=== PATIENT | female | born 1965 | race Caucasian/White ===

== ENCOUNTER 2024-10-05 21:45 | Inpatient (IN) | payer OTHER, SELFPAY ==
[2024-10-05 16:15] VITALS: BP 162/97
--- NOTE | 2024-10-05 18:44 | ED.GENMED ---
History of Present Illness
General
Chief Complaint: Abdominal Pain
Time Seen by Provider: 10/05/24 18:06
History of Present Illness
History of Present Illness:
59-year-old female presents the emergency department for evaluation of excruciating right upper quadrant abdominal pain that began 3 to 4 days ago, she was diagnosed with pneumonia by her primary care physician via telehealth appointment earlier in
the week, states that while coughing forcefully last night she developed acute onset of right upper quadrant pain. Despite her respiratory symptoms improving on antibiotics she feels as though the pain has been worsening throughout the day. She
concerned there is a palpable lump to the area. Worse with any movement or twisting. She also notes that she feels gas buildup causing increasing pain as well as difficulty having a formed bowel movement. No fevers or chills
Review of Systems
Review of Systems
Allergies reviewed?: Yes
All Other Systems: ROS reviewed and negative except as documented in HPI and ROS
Phy Exam
Physical Exam
Physical Exam:
GEN: Well appearing, NAD, WDWN
HEENT: Oral mucosa moist, no scleral icterus
Cardiac: Regular rate
Lung: No respiratory distress, no tachypnea
Abdomen: Moderate firmness to the right upper quadrant, no discrete mass, no pulsations, remainder of abdomen is soft and nontender
MSK: No gross deformity or injuries
Skin: Good color, no pallor or jaundice, no rashes
Neuro: AO x3, moves all extremities freely
Psych: Calm, cooperative
Course
Orders/Labs/Results
Orders:
Orders
10/05/24 18:41
CT Abd/Pel (IV only)-DH only Urgent
Comment: hernia vs hematoma
Reason For Exam: RUQ pain after coughing
0.9% Sodium Chloride 1000 ml [Nss] 1,000 ml IV BOLUS
Ketorolac [Toradol] 15 mg IV NOW STA
10/05/24 18:54
Complete Blood Count/With Diff Urgent
Comprehensive Metabolic Panel Urgent
10/05/24 19:45
Albuterol [ProAIR HFA INHALER] 2 puff INH R NOW STA
10/05/24 20:56
HYDROmorphone [Dilaudid] 0.5 mg IV NOW STA
10/05/24 21:11
PT/INR [Prothrombin Time] Urgent
PTT Urgent
10/05/24 21:13
Admit/Transfer Patient As Directed
Co-Sign Provider:
Level of Care: Inpatient admission
Assign to:: Medical/Surgical
Physician / Group: anaya
Diagnosis: rectus sheath hematoma
Reason for Hospitalization: rectus sheath hematoma
Expected length of stay greater than two midnights?: Yes
ELOS- Estimated Length of Stay in days: 3
I certify the patient meets the requirements for IP care: Yes
PRN Pain Medication Management As Directed
May give lesser potent ordered pain med per pt: Yes
preference::
Protocol:: Medication orders for pain may be administered in a
manner that supports deferring to patient preference
when the pt is:
- Requesting an ordered lesser potent pain medication.
Least to most potent pain medications are defined
as: acetaminophen < NSAID < tramadol < opioids
(morphine, oxycodone, hydromorphone).
- Requesting a lesser dose of the same medication IF
ORDERED.
- Requesting a less intrusive route of administration
if both routes are prescribed by the provider (PO <
IV).
10/05/24 21:14
Code Status As Directed
Resuscitation Status: Full Code
10/05/24 21:42
IRAD CONSULT Routine
Consulting Provider: Panda Ye
Was physician already notified: Yes
Reason for Consult/Procedure: rectal sheath hematoma
Acknowledgement that appropriate orders are entered: Yes
10/05/24 22:48
0.9% Sodium Chloride 1000 ml [Nss] 1,000 ml IV 80 mls/hr
Albuterol [ProAIR HFA INHALER] 2 puff INH R Q6HPRN PRN
Tramadol HCl [Ultram] 100 mg PO [id number] PRN
10/05/24 22:48
Abdominal Binder As Directed
Activity As Directed
Activity Level: As Tolerated
Venous Foot Pumps As Directed
Location: Bilateral feet
Vital Signs As Directed
Frequency: Per unit guidelines
DX Deep Vein Thrombosis Video Routine
10/05/24 22:52
HYDROmorphone [Dilaudid] 1 mg IV Q4HPRN PRN
10/05/24 23:33
Lactate Level [Lactic Acid] Stat
10/06/24 Breakfast
NPO
Allow oral meds: Yes
Allow clear liquids: No
Complete Blood Count/No Diff IN AM
10/06/24 08:00
Cefuroxime Axetil [Ceftin] 500 mg PO BID
MethylPREDNISolone [Medrol] 16 mg PO ONCE ONE
10/07/24 06:00
Complete Blood Count/No Diff IN AM
10/07/24 08:00
MethylPREDNISolone [Medrol] 12 mg PO ONCE ONE
10/08/24 06:00
Complete Blood Count/No Diff IN AM
10/08/24 08:00
MethylPREDNISolone [Medrol] 8 mg PO ONCE ONE
10/09/24 06:00
Complete Blood Count/No Diff IN AM
10/09/24 08:00
MethylPREDNISolone [Medrol] 4 mg PO ONCE ONE
Abnormal Lab Results
10/05/24
18:54
WBC 15.6 H 10^3/uL
(4.8-10.8)
Abs Immat Gran (auto) 0.2 H 10^3/uL
(0-0.05)
Absolute Neuts (auto) 9.5 H 10^3/uL
(1.4-6.5)
Absolute Lymphs (auto) 4.7 H 10^3/uL
(1.2-3.4)
Absolute Monos (auto) 0.9 H 10^3/uL
(0.1-0.6)
Immature Gran % 1.0 H %
(0-0.5)
Glucose 125 H mg/dl
(70-99)
AST 46 H U/L
(14-36)
ALT 41 H U/L
(0-35)
10/05/24 18:54
10/05/24 18:54
Vital Signs
Initial and Last Documented VS:
Initial Vital Signs
Temp Pulse Resp BP Pulse Ox
97.8 F 60 16 162/97 99
10/05/24 16:15 10/05/24 16:15 10/05/24 16:15 10/05/24 16:15 10/05/24 16:15
Last Documented Vital Signs
Temp Pulse Resp BP Pulse Ox
97.5 F 73 18 157/78 97
10/05/24 23:30 10/05/24 23:30 10/05/24 23:30 10/05/24 23:30 10/05/24 23:30
MDM/Problems Addressed
MDM/Problems Addressed:
CT findings reviewed with interventional radiology on-call. Recommends abdominal binder and overnight monitoring for serial H&H, consider angio study if patient becomes unstable. Will admit to the hospitalist service
*Critical Care Note
Total Time (30-74mins, 75-104mins- exclusive of procedures): Not Applicable
ED Attending Note
-
Portions of this chart may have been created with voice recognition software.� Occasional wrong word or��sound alike� substitutions may have occurred due to the inherent limitations of voice recognition software.
Discharge Plan
Departure
Patient Disposition: Admit
Date of Disposition: 10/05/24
Time of Disposition: 20:43
Admit to: Med/Surg
Presentation/result/management discussed w/ accepting MD/DO: Hospitalist
Discharge Problem:
Hematoma of rectus sheath
Interventions
Interventions:
*Risk Screen - Suicide Last Done: 10/05/24 23:03
*General Assessment Last Done: 10/05/24 19:04
*Neglect/Abuse Screening Last Done: 10/05/24 16:18
ED- Fall Risk Assessment Last Done: 10/05/24 22:40
*ED COVID-19 Vaccine History Last Done: 10/05/24 23:03
*Nursing Disposition Last Done: 10/05/24 22:40
ZG-Yzqgnf-Rfywlpdfey Assessment Last Done: 10/05/24 18:54
Discharge Date and Time
Discharge Date/Time: 10/05/24 22:47
[2024-10-05] MEDS: NSS 1000 IV ×2 (18:55→23:19)
[2024-10-05] MEDS: TORADOL 15 MG IV (18:55)
[2024-10-05 19:22] LABS: Hematocrit 40.5 % (37.0-47.0); Hemoglobin 13.6 g/dL (12.0-16.0); Mean Corp Hgb Conc. 33.6 g/dL (33.0-37.0); Mean Corpuscular Hgb 30.6 pg (27.0-31.0); Mean Platelet Volume 9.5 fL (7.4-10.4); Platelet Count 272 10^3/uL (130-400); Red Blood Cell Count 4.45 10^6/uL (4.20-5.40); Red Cell Dist. Width 14.1 % (11.5-14.5); White Blood Cell Count 15.6 10^3/uL (4.8-10.8)
[2024-10-05 19:32] LABS: ALT (SGPT) 41 U/L (0-35); AST (SGOT) 46 U/L (14-36); Albumin 4.9 g/dl (3.5-5.0); Alkaline Phosphatase 60 U/L (38-126); Blood Urea Nitrogen 16 mg/dl (7-17); Calcium 9.3 mg/dl (8.4-10.2); Carbon Dioxide 26 mmol/L (22-30); Chloride 101 mmol/L (98-107); Glucose 125 mg/dl (70-99); Potassium 4.3 mmol/L (3.5-5.1); Sodium 137 mmol/L (135-145); Total Bilirubin 0.9 mg/dl (0.2-1.3); Total Protein 7.4 g/dl (6.3-8.2); eGFR > 60.00
[2024-10-05 20:07] LABS: % Basophils 0.5 % (0-2); % Eosinophils 1.2 % (0-6); % Neutrophils 61.3 % (42.2-75.2); Absolute Basophils 0.1 10^3/uL (0-0.2); Absolute Eosinophils 0.2 10^3/uL (0-0.7); Absolute Immature Granulocytes 0.2 10^3/uL (0-0.05); Absolute Lymphocytes 4.7 10^3/uL (1.2-3.4); Absolute Monocytes 0.9 10^3/uL (0.1-0.6); Absolute Neutrophils 9.5 10^3/uL (1.4-6.5); Nucleated Red Blood Cells % 0 %
[2024-10-05] MEDS: ProAIR HFA INHALER 2 PUFF INH (20:24)
--- NOTE | 2024-10-05 20:49 | HPS.HSE ---
Addendum entered and electronically signed by Eric Sheets DO 10/05/24 22:47:
Patient seen and examined independently. Agree with findings and plan as set forth by ZEUS Buckner.
Patient is a 59y F with PMH significant for hypothyroidism who presents to ED complaining of severe abdominal pain. Patient states that she started with cough / cold symptoms about 8 days ago. She shortly thereafter developed pain in the R
abdomen that would occur with coughing. She spoke with her PCP several days ago and was prescribed Ceftin and Medrol dose pack for her ongoing cough / respiratory complaints. She was using inhaler at bedtime to decrease cough and help with sleep.
She states that her cough and dyspnea have significantly improved over the past 2 days since beginning these medications. However, she woke around 2 AM this morning with severe pain in the R abdomen. This was much worse than her prior discomfort
and was not clearly triggered by any coughing paroxysm, etc. Her pain worsened / persisted throughout the day - ultimately prompting her to present to the ED for further evaluation and treatment.
Ass:
Right Rectus Sheath Hematoma
Bronchitis / URI
Leukocytosis
Hypothyroidism
Plan:
Admit for further evaluation and treatment.
CT scan shows large R rectus sheath hematoma with enhancement concerning for active bleeding / extravasation.
Results reviewed with IR who recommend monitoring clinical status, Hgb and hemodynamics.
Will see in AM. Will see urgently if patient decompensates.
Not on any blood thinners, antiplatelets, etc.
Pain control / supportive care for now.
Monitor BP, H&H, etc.
Follow for any new / worsening symptoms.
Continue abx / PO steroid regimen for respiratory illness.
Cough suppressants to minimize cough / prevent further exacerbation of abdominal injury.
Original Note:
Family Physician
-
Family Physician: John Conklin
Chief Complaint
-
abdominal pain
History of Present Illness
59-year-old female with PMH for hypothyroidism presents the emergency department for evaluation of excruciating right upper quadrant abdominal pain since last night. patient was coughing for past 10-12 days. she was initiated on Ceftin 3 days ago
for possible pneumonia.last night she woke up with excruciating right sided upper quadrant pain. she was up all night with pain. took gas x with no relief in her symptoms. she was nauseous. denied vomit. she was evaluated by PCP, who gave her muscle
relaxant. she took half of one pill, which knocked her out for 40 minutes. she woke up with worsening excruciating pain. her normal regular BM was two days ago. denied fever chills, chest pain, sob. denied dysuria or hematuria.
she was doing fine with Toradol, then she noted to have worsening pain after neb treatment. CT with Large right rectus sheath hematoma measuring at least 12 x 10 x 5.5 cm. Small focus of high attenuation density within centrally without significant
change on immediate postcontrast and delayed postcontrast imaging, cannot exclude active bleeding within.
admitting for further management.
Medical History
Past Medical History
Past Medical History: Reports Other
Additional Past Medical History:
hypothyroidism
Past Surgical History: Reports Appendectomy
Social History
Tobacco: Smoker (occasional )
Alcohol: None
Drug: None
Personal:
Living: With Family
Family History
Family History: Not pertinent
Allergies / Home Medications
Allergies reflects when Allergies were last updated in [facility].
Home Medications with original date entered in [facility]
Allergy/Medication List:
Allergies
Allergy/AdvReac Type Severity Reaction Status Date / Time
Quinolones Allergy Hives Verified 03/13/23 19:54
Home Medications
albuterol sulfate 90 mcg/actuation aerosol inhaler 2 puff inhalation R Q6HPRN PRN sob 10/05/24
cefuroxime axetil 500 mg tablet 500 mg PO BID 10/05/24
methylprednisolone 4 mg tablets in a dose pack 0 mg PO PER PKG DIR 10/05/24
simethicone 80 mg chewable tablet 160 mg PO BIDPRN PRN gas 10/05/24
Review of Systems
-
Constitutional: Reports No Symptoms
EENT: Reports No Symptoms
Respiratory: Reports No Symptoms
Cardiac: Reports No Symptoms
Abdomen/GI: Reports Abdominal Pain and Nausea
: Reports No Symptoms
Musculoskeletal: Reports No Symptoms
Skin: Reports No Symptoms
Neurological: Reports No Symptoms
Endocrine: Reports No Symptoms
Hematologic/Lymphatic: Reports No Symptoms
Psych: Reports No Symptoms
Physical Exam
Vital Signs
Vital Signs
Temp Pulse Resp BP Pulse Ox
97.8 F 60 20 162/97 99
10/05/24 16:15 10/05/24 16:15 10/05/24 18:00 10/05/24 16:15 10/05/24 16:15
Physical Exam
General: Well Developed, Well Nourished and No Apparent Distress
HEENT: NormoCephalic, Moist mucous membranes and Atraumatic
Respiratory: Clear
Cardiac: S1/S2 and Regular Rhythm; No Murmur or Rub
GI: Soft, Non Distended, Normal Bowel Sounds and Tender; No Organomegaly
Rectal: Deferred by Provider
Musculoskeletal: No Clubbing, No Cyanosis and No Edema
Skin: No Rash
Neuro: AO x 3 and Nonfocal/grossly intact
Psych: Calm
Laboratory Results
-
10/05/24 18:54
10/05/24 18:54
Laboratory Results
Total Bilirubin 0.9 mg/dl (0.2-1.3) 10/05/24 18:54
AST 46 U/L (14-36) H 10/05/24 18:54
ALT 41 U/L (0-35) H 10/05/24 18:54
Alkaline Phosphatase 60 U/L (38-126) 10/05/24 18:54
Data Reviewed
-
CT Scan: Report Reviewed by me
Lab Data: Labs Reviewed by me
Impression/Plan
-
#rectus sheath hematoma
-IR consulted
-IR recommended angio study if patient becomes unstable.
-abdominal binder
-keep NPO
-fluids continued for hydration
-Tramadol and Dilaudid prn for pain
-CT abdomen pelvis with Large right rectus sheath hematoma measuring at least 12 x 10 x 5.5 cm. Small focus of high attenuation density within centrally without significant change on immediate postcontrast and delayed postcontrast imaging, cannot
exclude active bleeding within.Mild partial likely remote L2 superior endplate compression fracture.
#leukocytosis likely from steroids
-patient is afebrile
-ctm
#LFT elevation
-ctm
#cough likely pneumonia
-Ceftin continued
-steroid continued
#hypothyroidism
-not taking levothyroxine for past few days.
#DVT prophylaxis
-scd
#CODE status
-full code
[2024-10-05] MEDS: DILAUDID 0.5 MG IV (21:12)
[2024-10-05 21:16] VITALS: BP 132/73
[2024-10-05 21:33] LABS: PT 14.5 Sec (11.4-14.6)
[2024-10-05 21:34] LABS: APTT 28.1 Sec (23.4-35.0)
[2024-10-05 23:30] VITALS: BP 157/78; BMI 41.8
[2024-10-05 23:52] LABS: Lactic Acid 1.3 mmol/L (0.7-2.0)
[2024-10-06 01:20] LABS: Hematocrit 36.8 % (37.0-47.0); Hemoglobin 12.1 g/dL (12.0-16.0)
[2024-10-06] MEDS: ULTRAM 100 MG PO (03:20)
[2024-10-06] MEDS: PHENERGAN WITH CODEINE SYRUP 5 ML PO (03:20)
[2024-10-06] MEDS: SYNTHROID PO (05:19)
[2024-10-06 06:45] LABS: Hematocrit 35.6 % (37.0-47.0); Mean Corp Hgb Conc. 33.7 g/dL (33.0-37.0); Mean Corpuscular Hgb 32.3 pg (27.0-31.0); Mean Corpuscular Volume 95.7 fL (81.0-99.0); Mean Platelet Volume 9.7 fL (7.4-10.4); Platelet Count 231 10^3/uL (130-400); Red Blood Cell Count 3.72 10^6/uL (4.20-5.40); Red Cell Dist. Width 14.4 % (11.5-14.5); White Blood Cell Count 12.3 10^3/uL (4.8-10.8)
[2024-10-06 07:11] VITALS: BP 127/64
[2024-10-06] MEDS: MEDROL 16 MG PO (08:08)
[2024-10-06] MEDS: CEFTIN 500 MG PO ×2 (08:08→19:36)
[2024-10-06] MEDS: TYLENOL 650 MG PO ×2 (08:57→16:49)
[2024-10-06] MEDS: TESSALON PERLES 200 MG PO ×2 (08:57→17:15)
[2024-10-06] MEDS: MUCINEX 1200 MG PO ×2 (08:57→19:36)
--- NOTE | 2024-10-06 09:03 | W.PN.HOSP.TC ---
Today's Communication/Plan
-
resume regular diet, IVF completed
observe, if remains stable/continues to improve, likely discharge tomorrow.
Assessment / Plan
Assessment / Plan
Physical Exam
General: Well Developed, Well Nourished and No Apparent Distress
HEENT: NormoCephalic, Moist mucous membranes and Atraumatic
Respiratory: Clear
Cardiac: S1/S2 and Regular Rhythm; No Murmur or Rub
GI: Soft, Non Distended, Normal Bowel Sounds and Tender; Abd binder in placed
Musculoskeletal: No Clubbing, No Cyanosis and No Edema
Skin: No Rash
Neuro: AO x 3 and Nonfocal/grossly intact
Psych: Calm
HPI:59F with PMH significant for hypothyroidism who presents to ED complaining of severe abdominal pain. Patient states that she started with cough / cold symptoms about 8 days ago. She shortly thereafter developed pain in the R abdomen that
would occur with coughing. She spoke with her PCP several days ago and was prescribed Ceftin and Medrol dose pack for her ongoing cough / respiratory complaints. She was using inhaler at bedtime to decrease cough and help with sleep. She states
that her cough and dyspnea have significantly improved over the past 2 days since beginning these medications. However, she woke around 2 AM morning with severe pain in the R abdomen. This was much worse than her prior discomfort and was not
clearly triggered by any coughing paroxysm, etc. Her pain worsened / persisted throughout the day - ultimately prompting her to present to the ED for further evaluation and treatment.
#rectus sheath hematoma
-CT abdomen pelvis with Large right rectus sheath hematoma measuring at least 12 x 10 x 5.5 cm. Small focus of high attenuation density within centrally without significant change on immediate postcontrast and delayed postcontrast imaging, cannot
exclude active bleeding within.Mild partial likely remote L2 superior endplate compression fracture.
-IR consult appreciated conservative mgmt recommended angio study if patient becomes unstable.
-abdominal binder
-Symptomatically improved, IVF completed, diet resumed
-Tramadol and Dilaudid prn for pain
#leukocytosis likely from steroids
-patient is afebrile
-ctm
#mild LFT elevation
-ctm
#cough likely pneumonia
-Ceftin continued
-steroid continued
#hypothyroidism
-not taking levothyroxine for past few days.
#DVT prophylaxis
-scd
#CODE status
-full code
I spent a total of 45 minutes with the patient or on the floor. More than 50% of this time involved counseling and coordination of care.
Anticipated Discharge: Within 24 hours
Subjective/Interval History
-
Date of Service: October 06, 2024
Overall reports improvement in symptoms. Denies new acute issues.
Objective Data
-
Labs:
Laboratory Results
10/05/24 10/06/24 10/06/24
21:11 01:13 06:27
WBC 12.3 H
Hgb 12.1 12.0
Hct 36.8 L 35.6 L
Plt Count 231
PT 14.5
INR 1.10
APTT 28.1
Vital Signs:
Vital Signs
Temp Pulse Resp BP Pulse Ox
97.4 F 70 18 127/64 93
10/06/24 07:11 10/06/24 07:11 10/06/24 07:11 10/06/24 07:11 10/06/24 07:11
I&O
10/05/24 10/06/24 10/07/24
06:59 06:59 06:59
Intake Total 0 / 0
Balance 0 / 0
[2024-10-06] MEDS: NSS IV (13:09)
--- NOTE | 2024-10-06 14:05 | W.PN.UPDATE ---
Update Note
Progress Note Update
Discussed potential transcatheter embolization procedure for rectus sheath hematoma with patient. Pt up in bed, no distress, having lunch. States abd pain significantly improved, abd softer as c/w yesterday, no new sxs. Discussed typical course of
rectus sheath hematoma in pt not on anti-coagulation, typically will tamponade itself without intervention. Discussed the technical details of embolization procedure should that become necessary due to deterioration. At this point, VSS and
significantly improved symptomatically, unlikely to need intervention. Reasonable to stay overnight for observation.
[2024-10-06 15:29] VITALS: BP 104/51
[2024-10-06 23:29] VITALS: BP 139/81
[2024-10-07] MEDS: TYLENOL 650 MG PO ×2 (04:41→10:45)
[2024-10-07] MEDS: SYNTHROID 100 MCG PO (04:42)
[2024-10-07 06:55] LABS: Hematocrit 33.9 % (37.0-47.0); Hemoglobin 11.5 g/dL (12.0-16.0); Mean Corp Hgb Conc. 33.9 g/dL (33.0-37.0); Mean Corpuscular Hgb 31.5 pg (27.0-31.0); Mean Corpuscular Volume 92.9 fL (81.0-99.0); Mean Platelet Volume 10.2 fL (7.4-10.4); Platelet Count 231 10^3/uL (130-400); Red Blood Cell Count 3.65 10^6/uL (4.20-5.40); Red Cell Dist. Width 14.1 % (11.5-14.5); White Blood Cell Count 15.4 10^3/uL (4.8-10.8)
[2024-10-07 07:11] LABS: Blood Urea Nitrogen 14 mg/dl (7-17); Calcium 8.7 mg/dl (8.4-10.2); Carbon Dioxide 27 mmol/L (22-30); Chloride 105 mmol/L (98-107); Estimated Creatinine Clearance 98 ml/min; Glucose 107 mg/dl (70-99); Magnesium 2.2 mg/dl (1.6-2.3); Phosphorus 3.7 mg/dl (2.5-4.5); Sodium 141 mmol/L (135-145); eGFR > 60.00
--- NOTE | 2024-10-07 07:44 | W.PN.HOSP.TC ---
Today's Communication/Plan
-
discharge
Assessment / Plan
Assessment / Plan
Physical Exam
General: Well Developed, Well Nourished and No Apparent Distress
HEENT: NormoCephalic, Moist mucous membranes and Atraumatic
Respiratory: Clear
Cardiac: S1/S2 and Regular Rhythm; No Murmur or Rub
GI: Soft, Non Distended, Normal Bowel Sounds and Tender; faint bruising as noted below
Musculoskeletal: No Clubbing, No Cyanosis and No Edema
Skin: No Rash, faint abd bruising noted significantly improved as per patient, appears near resolved
Neuro: AO x 3 and Nonfocal/grossly intact
Psych: Calm
HPI:59F with PMH significant for hypothyroidism who presents to ED complaining of severe abdominal pain. Patient states that she started with cough / cold symptoms about 8 days ago. She shortly thereafter developed pain in the R abdomen that
would occur with coughing. She spoke with her PCP several days ago and was prescribed Ceftin and Medrol dose pack for her ongoing cough / respiratory complaints. She was using inhaler at bedtime to decrease cough and help with sleep. She states
that her cough and dyspnea have significantly improved over the past 2 days since beginning these medications. However, she woke around 2 AM morning with severe pain in the R abdomen. This was much worse than her prior discomfort and was not
clearly triggered by any coughing paroxysm, etc. Her pain worsened / persisted throughout the day - ultimately prompting her to present to the ED for further evaluation and treatment.
#rectus sheath hematoma
-CT abdomen pelvis with Large right rectus sheath hematoma measuring at least 12 x 10 x 5.5 cm. Small focus of high attenuation density within centrally without significant change on immediate postcontrast and delayed postcontrast imaging, cannot
exclude active bleeding within.Mild partial likely remote L2 superior endplate compression fracture.
-Symptomatically improved, IVF completed, diet resumed
-abd bruising near resolved very faint, pain significantly improved well controlled with Tylenol at this time
-abdominal binder completed
-Tramadol and Dilaudid prn for pain
#leukocytosis likely from steroids
-patient is afebrile
-ctm
#mild LFT elevation
-outpt follow up labs with primary recommended
#cough likely pneumonia
-Ceftin continued
-steroid taper continued
#hypothyroidism
-home synthroid resumed, cont on discharge
#DVT prophylaxis
-scd
#CODE status
-full code
Total Time Preparing Discharge ___40____ minutes including examination of the patient, summary of the hospital stay, instructions for continuing care to all relevant caregivers; and preparation of discharge records, prescriptions, and referral
forms if necessary.
Anticipated Discharge: Today
Subjective/Interval History
-
Date of Service: October 07, 2024
Seen and examined at bedside in no acute distress resting comfortably in bed. Reports significant improvement in symptoms, including pain (resolved at this time). Denies new acute issues. Eager to go home.
Objective Data
-
Labs:
Laboratory Results
10/07/24
04:42
WBC 15.4 H
Hgb 11.5 L
Hct 33.9 L
Plt Count 231
Sodium 141
Potassium 5.0
Chloride 105
Carbon Dioxide 27
BUN 14
Creatinine 0.8
Glucose 107 H
Calcium 8.7
Vital Signs:
Vital Signs
Temp Pulse Resp BP Pulse Ox
98.4 F 84 18 139/81 92
10/06/24 23:29 10/06/24 23:29 10/06/24 23:29 10/06/24 23:29 10/06/24 23:29
I&O
10/06/24 10/07/24 10/08/24
06:59 06:59 06:59
Intake Total 0 / 0 660 / 660
Balance 0 / 0 660 / 660
[2024-10-07] MEDS: MUCINEX 1200 MG PO (07:56)
[2024-10-07] MEDS: CEFTIN 500 MG PO (07:56)
[2024-10-07] MEDS: MEDROL 12 MG PO (07:57)
[2024-10-07 08:38] VITALS: BP 157/76
--- NOTE | 2024-10-07 09:45 | W.DCSUMMARY ---
Discharge Summary
Discharge Data
Date of Admission: 10/05/24
Date of Discharge: 10/07/24
-
Pending Results: No
Discharge Plan
-
Patient Disposition: Home (Routine Discharge)
Discharge Diagnosis/Procedures: Rectus Sheath Hematoma likely secondary to severe coughing (resolving)
Leukocytosis likely secondary to steroids
Upper Respiratory Infection
Mild Transaminitis
Condition: Good
Diet: Regular
Activity: As tolerated
Driving Restrictions: As prior to admission
Bathing Restrictions: None
Blood Work: Repeat CBC and CMP with primary care provider in 1 week of discharge.
Others Tests: Repeat CT abd/pelvis with primary care provider in 1 month of discharge to follow up rectus sheath hematoma (discuss repeating sooner if abdomen pain persists/worsen)
Activity Restrictions/Additional Instructions:
Follow up with primary care provider in 1 week of discharge.
Mucinex and as needed Tessalon prescribed for cough.
Please take medications as prescribed/recommended and follow up with primary care provider and/or other healthcare provider involved in your care for refills and/or further adjustment to your medication regimen as necessary.
Referrals:
John Conklin MD [Family Provider] - in one week
Prescriptions:
New
guaifenesin 600 mg Tablet Extended Release 12hr
1,200 mg PO Q12 7 Days Qty: 28 0RF
benzonatate 100 mg Capsule
200 mg PO TIDPRN PRN (Reason: cough) Qty: 30 0RF
Continued
cefuroxime axetil 500 mg Tablet
500 mg PO BID
methylprednisolone 4 mg Tablets,Dose Pack
0 mg PO PER PKG DIR
Patient Comments:
10/05/24: Patient has taken 2 doses
albuterol sulfate 90 mcg/actuation Hfa Aerosol Inhaler
2 puff INHALATION R Q6HPRN PRN (Reason: sob)
simethicone 80 mg Tablet,Chewable
160 mg PO BIDPRN PRN (Reason: gas)
levothyroxine 100 mcg Tablet
100 mcg PO DAILY
Discharge Orders:
Discharge Patient (As Directed); Ordered 10/07/24
Ordered By: Russ Galvez
Discharge Date and Time
Print Language: CUBAN
--- NOTE | 2024-10-07 10:07 | CM ---
CM met with Keli at bedside to complete IA. Keli lives in a 2 story townhouse with 1 entry step. 6+6 steps (landing in between) to the 2nd floor.
Keli works from home. Her 2yo granddaughter who lives in the home; Keli is her caregiver.
Plan: Discharge to home with no identified needs.
PCP: John Conklin
[facility]
== END 2024-10-07 11:10 | disposition home or self-care (01) | DRG 604 ==
LOC: 4 EAST ACU 21:45
PROVIDERS: Physician Assistant; Registered Nurse; ADMITTING PHYSICIAN Hospitalist; ATTENDING PHYSICIAN Internal Medicine; EMERGENCY PHYSICIAN Emergency Medicine; FAMILY PHYSICIAN Internal Medicine
DX: S30.1XXA Contusion of abdominal wall, initial encounter (principal); J18.9 Pneumonia, unspecified organism; F17.200 Nicotine dependence, unspecified, uncomplicated; E03.9 Hypothyroidism, unspecified; J06.9 Acute upper respiratory infection, unspecified; T38.0X5A Adverse effect of glucocorticoids and synthetic analogues, initial encounter; Y99.8 Other external cause status
CPT/HCPCS: 74177; 80048; 80053; 83605; 83735; 84100; 85014; 85018; 85025; 85027; 85610; 85730; 94640; 96361; 96374; 96375; 99284; Q9967

== ENCOUNTER → 2025-09-13 14:55 | Outpatient (REF) | payer OTHER, SELFPAY | LOC: HWRAD 14:55 | PROVIDERS: ATTENDING PHYSICIAN Internal Medicine Endocrinology, Diabetes & Metabolism; FAMILY PHYSICIAN Internal Medicine | DX: E03.9 Hypothyroidism, unspecified (principal) | CPT/HCPCS: 76536 ==